=== PATIENT | female | born 1975 | race Caucasian/White ===

== ENCOUNTER 2021-02-23 21:59 | Emergency (ER) | payer BC ==
[2021-02-23] MEDS ORDERED: Ketorolac 30 MG/ML SDV IM ONE (22:05)
--- NOTE | 2021-02-23 22:07 | EDM.PDOC ---
ED HPI GENERAL MEDICAL PROBLEM - General Stated Complaint: RT ANKLE POSSIBLY SPRAINED Time Seen by Provider: 02/23/21 22:05 - History of Present Illness INITIAL COMMENTS - FREE TEXT/NARRATIVE: History of present illness: [] It was wrestling when she twisted her right ankle herself. That she has pain and injury. It happened just prior to arrival. She has no medical problems that would complicate her evaluation and treatment. She is allergic to morp shannen. She denies . Review of systems: As per history of present illness and below otherwise all systems reviewed and negative. Past medical history: As per history of present illness and as reviewed below otherwise noncontributory. Surgical history: As per history of present illness and as reviewed below otherwise noncontributory. Social history: No reported history of drug or alcohol abuse. Family history: As per history of present illness and as reviewed below otherwise noncontributory. Physical exam: Constitutional - well developed, well-nourished and in no acute distress HEENT - normocephalic, no evidence of trauma - external nose and mouth normal - no mass in neck and no JVD - mucosae moist EYES - full EOM, PERRL, no icterus - no evidence of inflammation, injection, or drainage Respiratory - no respiratory distress, equal bilateral expansion Musculoskeletal pain and swelling at right lateral malleolus. Otherwise no gross deformity of long bones or joints - no tenderness, swelling or edema Neurologic - Alert and oriented times four - CN II-XII grossly intact - motor sensory and coordination symmetrically normal Psychiatric - appropriate mood and affect with normal thought content Hematologic - No petechiae or purpura - mucosa appropriate color and sclera not pale - normal nail bed color and refill Integument - no rash or evidence of trauma - normal turgor Diagnostics: [] Therapeutics: [] Impression: [] Plan: [] Definitive disposition and diagnosis as appropriate pending reevaluation and review of above. - Related Data Home Meds: Home Meds Acetaminophen/HYDROcodone [[place] 325-7.5 MG] 1 tab PO Q4H PRN #20 tab 02/23/21 [Rx] ED ROS GENERAL - Review of Systems Review Of Systems: Comprehensive ROS is negative, except as noted in HPI. ED EXAM, GENERAL - Physical Exam Exam: See Below Free Text/Narrative:: My physical exam is in the HPI Course - Orders/Labs/Meds Orders: Active Orders 24 hr Category Date Time Status Ankle Min 3V Rt [CR] Stat Exams 02/23/21 22:05 Taken Acetaminophen/HYDROcodone [[place] 325-10 MG] Med 02/23/21 23:03 Once 1 tab PO ONETIME ONE Meds: Medications Discontinued Medications Generic Name Dose Route Start Last Admin Trade Name Gabriel PRN Reason Stop Dose Admin Ketorolac Tromethamine 30 mg 02/23/21 22:05 Ketorolac 30 Mg/Ml Sdv IM 02/23/21 22:06 ONETIME ONE Departure - Departure Time of Disposition: 23:09 Disposition: Home, Self-Care 01 Condition: Good Clinical Impression: Fracture of ankle, lateral malleolus, right, closed, Fracture of fibula - Discharge Information Instructions: Nondisplaced Fibular Ankle Fracture Treated With Immobilization, Adult Referrals: Yessi Reyes [employer] [Primary Care Provider] - Additional Instructions: [facility] - [facility] Clinic [address], [address] [place] [address] The following information is given to patients seen in the emergency department who are being discharged to home. This information is to outline your options for follow-up care. We provide all patients seen in our emergency department with a follow-up referral. The need for follow-up, as well as the timing and circumstances, are variable depending upon the specifics of your emergency department visit. If you don't have a primary care physician on staff, we will provide you with a referral. We always advise you to contact your personal physician following an emergency department visit to inform them of the circumstance of the visit and for follow-up with them and/or the need for any referrals to a consulting sp ecialist. The emergency department will also refer you to a specialist when appropriate. This referral assures that you have the opportunity for follow-up care with a specialist. All of these measure are taken in an effort to provide you with optimal care, which includes your follow-up. Under all circumstances we always encourage you to contact your private physician who remains a resource for coordinating your care. When calling for follow-up care, please make the office aware that this follow-up is from your recent emergency room visit. If for any reason you are refused follow-up, please contact the [facility] Emergency Department at and asked to speak to the emergency department charge nurse. - My Orders Last 24 Hours: My Active Orders 02/23/21 22:05 Ankle Min 3V Rt [CR] Stat 02/23/21 23:03 Acetaminophen/HYDROcodone [[place] 325-10 MG] 1 tab PO ONETIME ONE - Assessment/Plan Last 24 Hours: My Active Orders 02/23/21 22:05 Ankle Min 3V Rt [CR] Stat 02/23/21 23:03 Acetaminophen/HYDROcodone [[place] 325-10 MG] 1 tab PO ONETIME ONE
[2021-02-23] MEDS ORDERED: Acetaminophen/HYDROcodone 325-10 MG Tab PO ONE (23:03)
--- NOTE | 2021-02-23 23:20 | CR ---
INDICATION: Ankle pain TECHNIQUE: Ankle radiograph 3 views right COMPARISON: None FINDINGS: Bone: There is a nondisplaced oblique fracture present in the lateral malleolus. Joint: The ankle mortise joint and the visualized hindfoot joints are unremarkable in appearance. No significant ankle effusion is seen. Soft tissue: The Kager fat pad and the Achilles` tendon is normal in appearance. No radiopaque foreign bodies are seen. IMPRESSION: 1. There is a nondisplaced oblique fracture present in the lateral malleolus. Dictated by Gopi Saenz MD @ 02/23/2021 11:19:52 PM Dictated by: Gopi Saenz MD @ 02/23/2021 23:20:00 (Electronically Signed)
== END 2021-02-24 00:32 | disposition home or self-care (01) ==
LOC: MW.ED 21:59
DX: S82.64XA Nondisplaced fracture of lateral malleolus of right fibula, initial encounter for closed fracture (principal); X50.1XXA Overexertion from prolonged static or awkward postures, initial encounter
CPT/HCPCS: 73610; 96372; 99283; A9270; J1885